=== PATIENT | female | born 1970 | race Caucasian/White ===

== ENCOUNTER 2016-12-13 14:07 | Inpatient (IN) | payer SELFPAY ==
[~2016-12-13] VITALS: Ht 170.2 cm; Wt 72.0 kg
--- NOTE | ~2016-12-13 | HP ---
ADMIT: 12/13/2016 RM/LOC: 316 [facility] MR#: [id number] [facility]#: [id number] [address] [address] BETHANY BROCK [address] [place] [id number] Pre-OP History and Physical SEX: F AGE: 46 : 1970 DATE OF SERVICE: 12/13/2016 CHIEF COMPLAINT: Hematemesis, recurrent upper GI bleed, and anemia. HISTORY OF PRESENT ILLNESS: This is a patient of Armani Devries in [place], [place] up there. She presented to the hospital with recurrent hematemesis, was found to be anemic. 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 Gordon about a year and a half ago. The patient has been on Nexium. She has not really had much for abdominal pain, but she did have again this hematemesis and anemia, so she was transferred down here for evaluation. Her hemoglobin was down to 6.2. She got a couple of units of blood en route down here. PAST MEDICAL HISTORY: Illnesses include the previous ulceration and surgery for that, about a year and a half ago. MEDICATIONS: Include, 1. Flagyl. 2. Influenza vaccine. 3. Kytril. 4. Levaquin. 5. Maalox. 6. Neurontin. 7. Nexium. 8. Doculase. 9. Seroquel. 10.Symbicort. 11.Tylenol. 12.Iron. ALLERGIES: NONE. SOCIAL HISTORY: She denies tobacco abuse currently. FAMILY HISTORY: Noncontributory. REVIEW OF SYSTEMS: A 10-point review of systems essentially negative with exception of her hematemesis. No abdominal pain currently. She has had some dark stools also, but she blames that on the new vitamin she is taking. PHYSICAL EXAMINATION: GENERAL: She is alert. She is oriented. Currently ADMIT: 12/13/2016 RM/LOC: 316 [facility] MR#: [id number] [address] [address] BETHANY BROCK [address] [facility] [place] [address] Pre-OP History and Physical SEX: F AGE: 46 : 1970 stable. HEENT: She does not appear pale. Mouth, nose, and throat, all appear normal. LUNGS: Clear. HEART: Regular. ABDOMEN: Soft, nontender, and nondistended. ASSESSMENT: Recurrent hematemesis, probable upper gastrointestinal bleed with anemia. PLAN: I have recommended proceeding with EGD. I have gone through risks and benefits of this procedure in depth with the patient. She understands all this and agrees to proceed. Bakari Carvalho MD/ kun JOB #: [id number] CC: Bakari Carvalho, Attending Physician . UNKNOWN, Family Physician
--- NOTE | ~2016-12-13 | FD ---
ADMIT: 12/13/2016 RM/LOC: 526 [facility] MR#: [id number] [address] [address] BETHANY BROCK [facility] [address] [place] [id number] Final Diagnosis SEX: F AGE: 46 : 1970 ADMISSION DATE: 12/13/2016 DISCHARGE DATE: 12/15/2016 FINAL DIAGNOSES: 1. 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 This was also noted upon pathology. 2. 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 ALEXX Flanagan / Bakari Carvalho MD / kun JOB #: [id number] CC: Bakari Carvalho MD, Attending Physician Bakari Carvalho MD, Family Physician
[2016-12-16] MEDS ORDERED: NEURONTIN DPS600 MG PO (17:29)
[2016-12-16] MEDS ORDERED: SEROQUEL25 MG PO (17:29)
[2016-12-16] MEDS ORDERED: CARAFATE DPS1 GM PO (17:30)
[2016-12-16] MEDS ORDERED: ULTRAM DPS50 MG PO (17:30)
[2016-12-16] MEDS ORDERED: PROTONIX40 MG PO (17:30)
[2016-12-16] MEDS ORDERED: COLACE-DPS100 MG PO (17:30)
--- NOTE | 2016-12-26 09:04 | OR ---
ADMIT: 12/13/2016 RM/LOC: 316 [facility]#: [id number] [id number] [address] [address] BETHANY BROCK Gume [address] [place] [id number] Operative/Delivery Room Report SEX: F AGE: 46 : 1970 SURGERY DATE: 12/13/2016 SURGEON: Bakari Carvalho MD PREOPERATIVE DIAGNOSIS: Upper gastrointestinal bleed and hematemesis. POSTOPERATIVE DIAGNOSIS: Evidence of marginal ulceration at the gastrojejunal anastomosis, no evidence of duodenal ulceration. PROCEDURE PERFORMED: EGD with biopsies. ANESTHESIA: Sedation. ESTIMATED BLOOD LOSS: None. DESCRIPTION OF PROCEDURE: After appropriate informed consent was obtained, the patient was brought to the operating room. General endotracheal anesthesia was induced. A well-lubricated endoscope was introduced and passed down the esophagus. The entire esophageal mucosa appeared normal. She had just a very small hiatal hernia. No evidence of reflux changes at the GE junction. The scope was advanced into the stomach. There was a lot of bilious reflux and some food debris in the stomach. Initially, the pylorus was wide open. It appeared normal. I was able to advance through the pylorus into the duodenum. The duodenal bulb, second and third portion of the duodenum, all appeared normal. I was able to drive the scope quite a ways down into the duodenum. The scope was then pulled back, and upon pulling it back, I was able to identify the still patent gastrojejunal anastomosis from her previous surgery and there was a large marginal ulceration at that anastomosis. There was no active bleeding. No evidence of clot or blood around this. I was able to advance through this area down the jejunum quite a ways and that all appeared normal. No stricture or narrowing at the anastomosis. Several biopsies were taken around the rim of this anastomosis, and then I also took biopsies of the antrum. The scope was retroflexed again revealing pooling of gastric contents in the gastric fundus and just a small hiatal hernia from below. No proximal gastritis or mass. The stomach was then deflated and scope withdrawn without apparent complications. The patient tolerated the procedure well and was taken to the recovery room in stable condition. Bakari Carvalho MD/ kun JOB #: [id number] CC: Bakari Carvalho, Attending Physician UNKNOWN, Family Physician Armani Devries PA-C
== END 2016-12-15 13:50 | disposition home or self-care (01) | DRG 379 ==
LOC: 3ICU 14:07 → 5MS 12-14 14:24
PROVIDERS: ADMIT Surgery
DX: K92.0 Hematemesis (principal); K28.9 Gastrojejunal ulcer, unspecified as acute or chronic, without hemorrhage or perforation; D64.9 Anemia, unspecified; K44.9 Diaphragmatic hernia without obstruction or gangrene; Z23 Encounter for immunization